=== PATIENT | female | born 1930 | race Caucasian/White ===

== ENCOUNTER 2019-06-09 12:32 | Emergency (ER) | payer OTHER, BC ==
[2019-06-09] MEDS ORDERED: MEPERIDINE HCL 25 MG/0.5 ML ONE (16:02)
--- NOTE | 2019-06-09 16:13 | RAD REPORT ---
EXAM DESCRIPTION: RAD - Lumbar Spine 3 Views - 06/09/2019 3:38 pm CLINICAL HISTORY: fall injury COMPARISON: Chest Abdomen Pelvis W Cont dated 12/06/2015 FINDINGS: A three-view lumbar spine examination was performed. Approximately 20% compression fracture deformity involves the superior endplate L1 body. Posterior wa ll height is preserved. No encroachment into the central canal. The compression fracture is new from 2015 but can not otherwise the dated. Minimal anterior subluxation of L4. 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 Remaining vertebrae are normal in height. Significant disc space narrowing present right lateral aspect L3-4. All disc height shows some loss except for L2-3. Advanc ed facet joint degenerative change present mid and lower lumbar spine. No pars defects identified. IMPRESSION: Approximately 20 percent compression fracture superior endplate L1. Posterior wall heigh t is preserved. Compression fracture is new from 2015 but can not otherwise be dated. Prominent facet degenerative change in the lower lumbar spine. 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
--- NOTE | 2019-06-09 16:14 | RAD REPORT ---
EXAM DESCRIPTION: RAD - Pelvis - 06/09/2019 3:38 pm CLINICAL HISTORY: painfall COMPARISON: Chest Abdomen Pelvis W Cont dated 12/06/2015 TECHNIQUE: AP imaging of the pelvis was obtained. FINDINGS: No fracture of the bony pelvis. No fracture, dislocation or other acute hip joint finding. SI joint and pubic symphysis degenerative changes are present relatively mild for age. Byyv-hg-hrxni ate bilateral hip joint degenerative change. No acute femoral head finding. No soft tissue abnormality. IMPRESSION: Negative pelvis examination for acute finding. Bilateral hip joint degenerative change.
--- NOTE | 2019-06-09 16:23 | RAD REPORT ---
EXAM DESCRIPTION: RAD - Hip Right 2 View - 06/09/2019 3:39 pm CLINICAL HISTORY: Pain, fall with hip pain COMPARISON: No comparisons FINDINGS: AP and frog-leg views of the right hip were obtained. There is no fracture or dislocation. No AVN or focal head abnormality. Moderate degenerative change p resent at the hip joint. No joint effusion seen. Partially imaged right hemipelvis shows no acute fin ding. No suspicious soft tissue finding. IMPRESSION: Right hip joint degenerative change with no fracture or other acute finding.
--- NOTE | 2019-06-09 17:03 | EDPHYS ---
Physician Documentation [facility] Name: Cyndi Giron Age: 89 yrs Sex: Female : 1930 Arrival Date: 06/09/2019 Time: 12:34 Bed 30 Private MD: ED Physician Romaine Rivera HPI: 06/09 15:02 This 89 yrs old Female presents to ER via Wheelchair with complaints of Fall rn Injury, Hip Pain, Low Back Pain. 15:02 Details of fall: The patient fell from an upright position, while walking. Onset: The rn symptoms/episode began/occurred today. Associated injuries: The patient sustained right hip and back. Severity of symptoms: At their worst the symptoms were mild, in the emergency department the symptoms are unchanged. The patient has not experienced similar symptoms in the past. The patient has not recently seen a physician. Fall from standing, landed on right hip on ground, reports mild pain to right hip, more pain to lower back, is ambulatory but slower and more painful than normal. NO head injury or LOC. . Historical: - Allergies: 12:42 Ciprofloxacin; aj1 - Home Meds: 12:42 lisinopril 10 mg Oral tab 1 tab once daily [Active]; aj1 - PMHx: 12:42 Hypertension; aj1 - Immunization history: Last tetanus immunization: > 10 years ago. - Coronavirus screen:: The patient has NOT traveled to [place] in the past 14 days. - Social history:: Smoking status: Patient denies any tobacco usage or history of. - Family history:: not pertinent. - Ebola Screening: : Patient denies travel to an Ebola-affected area in the 21 days before illness onset. - Hospitalizations: : No recent hospitalization is reported. ROS: 15:02 Constitutional: Negative for fever, chills, and weight loss, Eyes: Negative for injury, rn pain, redness, and discharge, Cardiovascular: Negative for chest pain, palpitations, and edema, Respiratory: Negative for shortness of breath, cough, wheezing, and pleuritic chest pain, Abdomen/GI: Negative for abdominal pain, nausea, vomiting, diarrhea, and constipation, Back: + low back pain and injury MS/Extremity: + right hip pain and injury Skin: Negative for injury, rash, and discoloration, Neuro: Negative for headache, weakness, numbness, tingling, and seizure. Exam: 15:02 Constitutional: This is a well developed, well nourished patient who is awake, alert, rn and in no acute distress. Ambulatory to room from bathroom, slow, but able to ambulate Head/Face: Normocephalic, atraumatic. Eyes: Pupils equal round and reactive to light, extra-ocular motions intact. Lids and lashes normal. Conjunctiva and sclera are non-icteric and not injected. Cornea within normal limits. Periorbital areas with no swelling, redness, or edema. Neck: Trachea midline, no thyromegaly or masses palpated, and no cervical lymphadenopathy. Supple, full range of motion without nuchal rigidity, or vertebral point tenderness. No Meningismus. Abdomen/GI: soft, non-tender Back: + lower midline and perilumbar tenderness, no stepoff MS/ Extremity: Pulses equal, no cyanosis. Neurovascular intact. Ambulatory with very mild right hip tenderness Neuro: Awake and alert, GCS 15, oriented to person, place, time, and situation. Cranial nerves II-XII grossly intact. Motor strength 5/5 in all extremities. Sensory grossly intact. Cerebellar exam normal. Antalgic gait Vital Signs: 12:39 BP 110 / 58; Pulse 76; Resp 18; Temp 98.4; Pulse Ox 100% on R/A; Weight 48.08 kg (R); aj1 Height 5 ft. 2 in. (157.48 cm) (R); Pain 8/10; 12:39 Body Mass Index 19.39 (48.08 kg, 157.48 cm) aj1 [place] Coma Score: 12:39 Eye Response: spontaneous(4). Verbal Response: oriented(5). Motor Response: obeys aj1 commands(6). Total: 15. Trauma Score (Adult): 12:39 Eye Response: spontaneous(1); Verbal Response: oriented(1); Motor Response: obeys aj1 commands(2); Systolic BP: > 89 mm Hg(4); Respiratory Rate: 10 to 29 per min(4); [place] Score: 15; Trauma Score: 12 MDM: 14:51 Patient medically screened. rn 17:00 Differential diagnosis: contusion, fracture. Data reviewed: vital signs, nurses notes, rn radiologic studies, plain films, and as a result, I will discharge patient. Counseling: I had a detailed discussion with the patient and/or guardian regarding: the historical points, exam findings, and any diagnostic results supporting the discharge/admit diagnosis, radiology results, the need for outpatient follow up, to return to the emergency department if symptoms worsen or persist or if there are any questions or concerns that arise at home. Response to treatment: the patient's symptoms have mildly improved after treatment, and as a result, I will discharge patient. Special discussion: I discussed with the patient/guardian in detail that at this point there is no indication for admission to the hospital. It is understood, however, that if the symptoms persist or worsen the patient needs to return immediately for re-evaluation. Based on the history and exam findings, there is no indication for further emergent testing or inpatient evaluation. I discussed with the patient/guardian the need to see the back specialist for further evaluation of the symptoms. 06/09 12:43 Order name: Lumbar Spine (3 Views) XRAY aj1 06/09 15:02 Order name: XRAY Pelvis rn 06/09 15:02 Order name: XRAY Hip RIGHT 2 view rn 06/09 16:37 Order name: RAD EDMS 06/09 16:37 Order name: RAD EDMS Administered Medications: 16:04 Not Given (Duplicate Order): Demerol - Meperidine 12.5 mg IVP once; RASS on ADMIN: iw Combtv4, Very Agttd3, Agttd2, Rstlss1, AlertClm0, Drwsy-1, Lt Sdtn-2, Mod Sdtn-3, Dp Sdtn-4, UnArsble-5 16:05 Drug: Demerol 12.5 mg Route: IM; Site: right deltoid; iw Disposition: 06/09/19 17:01 Discharged to Home. Impression: Wedge compression fracture of first lumbar vertebra, Contusion of right hip. - Condition is Stable. - Discharge Instructions: Spinal Compression Fracture. - Prescriptions for Tylenol- Codeine #3 300-30 mg Oral Tablet - take 1 tablet by ORAL route every 6-8 hours As needed; 20 tablet. Cyclobenzaprine 5 mg Oral Tablet - take 1 tablet by ORAL route 3 times per day As needed; 15 tablet. - Medication Reconciliation Form, Thank You Letter, Antibiotic Education, Prescription Opioid Use form. - Follow up: Private Physician; When: As needed; Reason: Recheck today's complaints, Re-evaluation by your physician. - Problem is new. - Symptoms have improved. Signatures: Dispatcher [employer] EDLianne Reyez RN RN aj1 Mercedes Dai RN RN iw Romaine Rivera MD MD research intern: (The following items were deleted from the chart) 17:01 17:01 06/09/2019 17:01 Discharged to Home. Impression: Wedge compression fracture of rn first lumbar vertebra. Condition is Stable. Forms are Medication Reconciliation Form, Thank You Letter, Antibiotic Education, Prescription Opioid Use. Follow up: Private Physician; When: As needed; Reason: Recheck today's complaints, Re-evaluation by your physician. Problem is new. Symptoms have improved. rn 17:29 17:01 06/09/2019 17:01 Discharged to Home. Impression: Wedge compression fracture of iw first lumbar vertebra; Contusion of right hip. Condition is Stable. Forms are Medication Reconciliation Form, Thank You Letter, Antibiotic Education, Prescription Opioid Use. Follow up: Private Physician; When: As needed; Reason: Recheck today's complaints, Re-evaluation by your physician. Problem is new. Symptoms have improved. rn
--- NOTE | 2019-06-09 17:03 | ER ---
Nurse's Notes [facility] Name: Cyndi Giron Age: 89 yrs Sex: Female : 1930 Arrival Date: 06/09/2019 Time: 12:34 Bed 30 Private MD: Diagnosis: Wedge compression fracture of first lumbar vertebra;Contusion of right hip Presentation: 06/09 12:39 Presenting complaint: Child states: "She fell working in the yard and landed on her aj1 hip" Patient reports pain to her back. Denies hip pain. Care prior to arrival: None. Mechanism of Injury: Fall from standing position. Trauma event details: Injury occurred in the county of. 12:39 Acuity: LUCIUS 4 aj1 12:39 Method Of Arrival: Wheelchair aj1 12:41 Transition of care: patient was not received from another setting of care. Onset of aj1 symptoms was June 09, 2019. Risk Assessment: Do you want to hurt yourself or someone else? Patient reports no desire to harm self or others. Initial Sepsis Screen: Does the patient meet any 2 criteria? No. Patient's initial sepsis screen is negative. Does the patient have a suspected source of infection? No. Patient's initial sepsis screen is negative. Triage Assessment: 12:42 General: Appears in no apparent distress. comfortable, Behavior is calm, cooperative, aj1 appropriate for age. Pain: Complains of pain in back. Neuro: Level of Consciousness is awake, alert, obeys commands, Oriented to person, place, time, situation. Cardiovascular: Patient's skin is warm and dry. Respiratory: Airway is patent Respiratory effort is even, unlabored, Respiratory pattern is regular, symmetrical. Historical: - Allergies: 12:42 Ciprofloxacin; aj1 - Home Meds: 12:42 lisinopril 10 mg Oral tab 1 tab once daily [Active]; aj1 - PMHx: 12:42 Hypertension; aj1 - Immunization history: Last tetanus immunization: > 10 years ago. - Coronavirus screen:: The patient has NOT traveled to [place] in the past 14 days. - Social history:: Smoking status: Patient denies any tobacco usage or history of. - Family history:: not pertinent. - Ebola Screening: : Patient denies travel to an Ebola-affected area in the 21 days before illness onset. - Hospitalizations: : No recent hospitalization is reported. Screenin:39 Abuse screen: Denies threats or abuse. Denies injuries from another. Tuberculosis aj1 screening: No symptoms or risk factors identified. 15:15 Nutritional screening: No deficits noted. Fall Risk None identified. iw Primary Survey: 12:39 NO uncontrolled hemorrhage observed. A: The patient is alert. Airway: patent. aj1 Breathing/Chest: Respiratory pattern: regular, Respiratory effort: spontaneous, unlabored. Circulation: Skin color: pink. Disability Alert. Assessment: 15:13 General: Appears in no apparent distress. Behavior is calm, cooperative. Pain: iw Complains of pain in buttocks and back. Neuro: Level of Consciousness is awake, alert, obeys commands, Oriented to person, place, time, situation, Moves all extremities. Cardiovascular: Capillary refill < 3 seconds in bilateral fingers Patient's skin is warm and dry. Respiratory: Respiratory effort is even, unlabored, Respiratory pattern is regular, symmetrical. Derm: Skin is fragile. Musculoskeletal: Range of motion: limited in right hip. Vital Signs: 12:39 BP 110 / 58; Pulse 76; Resp 18; Temp 98.4; Pulse Ox 100% on R/A; Weight 48.08 kg (R); aj1 Height 5 ft. 2 in. (157.48 cm) (R); Pain 8/10; 12:39 Body Mass Index 19.39 (48.08 kg, 157.48 cm) aj1 [place] Coma Score: 12:39 Eye Response: spontaneous(4). Verbal Response: oriented(5). Motor Response: obeys aj1 commands(6). Total: 15. Trauma Score (Adult): 12:39 Eye Response: spontaneous(1); Verbal Response: oriented(1); Motor Response: obeys aj1 commands(2); Systolic BP: > 89 mm Hg(4); Respiratory Rate: 10 to 29 per min(4); [place] Score: 15; Trauma Score: 12 ED Course: 12:34 Patient arrived in ED. as 12:39 Patient has correct armband on for positive identification. aj1 12:39 Patient maintains SpO2 saturation greater than 95% on room air. aj1 12:40 Triage completed. aj1 12:42 Arm band placed on Patient placed in waiting room, Patient notified of wait time. aj1 14:51 Romaine Rivera MD is Attending Physician. rn 15:08 Mercedes Dai RN is Primary Nurse. iw 17:28 No provider procedures requiring assistance completed. Patient did not have IV access iw during this emergency room visit. Administered Medications: 16:04 Not Given (Duplicate Order): Demerol - Meperidine 12.5 mg IVP once; RASS on ADMIN: iw Combtv4, Very Agttd3, Agttd2, Rstlss1, AlertClm0, Drwsy-1, Lt Sdtn-2, Mod Sdtn-3, Dp Sdtn-4, UnArsble-5 16:05 Drug: Demerol 12.5 mg Route: IM; Site: right deltoid; iw Outcome: 17:01 Discharge ordered by MD. rn 17:28 Discharged to home via wheelchair, with family. iw 17:28 Condition: good 17:28 Discharge instructions given to patient, family, Instructed on discharge instructions, follow up and referral plans. medication usage, Demonstrated understanding of instructions, follow-up care, medications, Prescriptions given X 2. 17:29 Patient left the ED. iw Signatures: Lianne Cardoso, RN RN aj1 Jaimie Cabrera as Mercedes Dai, RN RN iw Romaine Rivera MD MD furniture removalist's assistant: (The following items were deleted from the chart) 06/10 07:24 02 17:28 Discharge instructions given to patient, family, Instructed on discharge iw instructions, follow up and referral plans. medication usage, Demonstrated understanding of instructions, follow-up care, medications, Prescriptions given X 1, iw
[2019-06-09 17:49] VITALS: BP 110/58; TEMP 98.4; O2SAT 100
== END 2019-06-09 17:29 | disposition home or self-care (01) ==
LOC: ER 12:32
DX: S32.010A Wedge compression fracture of first lumbar vertebra, initial encounter for closed fracture (principal); S70.01XA Contusion of right hip, initial encounter; W18.30XA Fall on same level, unspecified, initial encounter; Y93.H2 Activity, gardening and landscaping; Y92.017 Garden or yard in single-family (private) house as the place of occurrence of the external cause; Z88.1 Allergy status to other antibiotic agents; I10 Essential (primary) hypertension
CPT/HCPCS: 72100; 72170; 73502; 96372; 99284; J2175